=== PATIENT | female | born 1965 | race Caucasian/White ===

== ENCOUNTER 2017-07-02 13:48 | Emergency (ER) | payer BC ==
--- NOTE | 2017-07-02 14:28 | CR ---
Clinical history: 52-year-old female chest pain. Interpretation: Upright AP portable chest film negative. Reasonable inspiratory effort obese female with external front desk monitor leads. Normal cardiac silhouette without alveolar edema or dependent pleural effusion. No lung mass, hilar lymphadenopathy, focal lobar pneumonia or atelectasis/collapse. No pneumothorax.
--- NOTE | 2017-07-02 14:41 | EDM.PDOC ---
ED HPI GENERAL MEDICAL PROBLEM - General Chief Complaint: Chest Pain Stated Complaint: CHEST PAIN. IN BY DL AMB Time Seen by Provider: 07/02/17 14:30 Source of Information: Reports: Patient History Limitations: Reports: No Limitations - History of Present Illness INITIAL COMMENTS - FREE TEXT/NARRATIVE: This 52 yo female patient reports to the ED with increased chest pain over the past 24 hours. The patient reports she started to have pain in the left side of her chest yesterday which caused her not to sleep most of the night. The patient reports she took today off from work and she began to have pains in the right side of her chest. The patient reports her right sided chest pain goes straight through to her right shoulder blade. The patient reports when she got up there were numerous phone calls from people wondering how she is doing. The patient reports her mother about 1 year ago and she just put her aunt in the correction. The patient reports she forgot to take her antidepressants yesterday as well as today. The patient reports during the night she had the feeling that her heart was beating out of her chest. The patient reports she has been taking all of her other medications as prescribed. The patient reports she had a "touch of food poisoning" over the week end causing her loose bowel movement. These symptoms have now resolved. Duration: Day(s): (2), Constant Location: Reports: Chest (initially on the left side of her chest, but currently on the right side of her chest. ) Quality: Reports: Ache, Sharp Severity: Severe Improves with: Reports: None Worsens with: Reports: None Context: Reports: Other Associated Symptoms: Reports: Chest Pain, Shortness of Breath - Related Data Allergies Allergy/AdvReac Type Severity Reaction Status Date / Time codeine Allergy Itching Verified 07/12/14 16:18 rubber Allergy Airway Uncoded 07/12/14 16:18 Tightness Home Meds: Home Meds metFORMIN [Glucophage] 500 mg PO BID 07/12/14 [History] DULoxetine HCl [Duloxetine HCl] 1 cap PO DAILY 07/02/17 [History] Triamterene/Hydrochlorothiazid [Triamterene-HCTZ 37.5-25 MG] 1 tab PO DAILY [History] Social & Family History - Tobacco Use Smoking Status *Q: Light Tobacco Smoker - Alcohol Use Days Per Week of Alcohol Use: 0 - Recreational Drug Use Recreational Drug Use: No - Living Situation & Occupation Living situation: Reports: Occupation: Employed ED ROS GENERAL - Review of Systems Review Of Systems: ROS reveals no pertinent complaints other than HPI. ED EXAM, GENERAL - Physical Exam Exam: See Below Exam Limited By: No Limitations General Appearance: Alert, WD/WN, Moderate Distress Eye Exam: Bilateral Eye: EOMI, Normal Inspection, PERRL Ears: Normal External Exam, Normal Canal, Hearing Grossly Normal, Normal TMs Nose: Normal Inspection, Normal Mucosa, No Blood Throat/Mouth: Normal Inspection, Normal Lips, Normal Teeth, Normal Gums, Normal Oropharynx, Normal Voice, No Airway Compromise Head: Atraumatic, Normocephalic Neck: Normal Inspection, Supple, Non-Tender, Full Range of Motion Respiratory/Chest: No Respiratory Distress, Lungs Clear, Normal Breath Sounds, No Accessory Muscle Use, Chest Non-Tender Cardiovascular: Normal Peripheral Pulses, Regular Rate, Rhythm, No Edema, No Gallop, No JVD, No Murmur, No Rub GI/Abdominal: Normal Bowel Sounds, Soft, Non-Tender, No Organomegaly, No Distention, No Abnormal Bruit, No Mass, Other (obese) (Female) Exam: Deferred Rectal (Female) Exam: Deferred Back Exam: Normal Inspection, Full Range of Motion, NT Extremities: Normal Inspection, Normal Range of Motion, Non-Tender, Normal Capillary Refill, No Pedal Edema Neurological: Alert, Oriented, CN II-XII Intact, Normal Cognition, Normal Gait, Normal Reflexes, No Motor/Sensory Deficits Psychiatric: Normal Affect, Normal Mood Skin Exam: Warm, Dry, Intact, Normal Color, No Rash Lymphatic: No Adenopathy Course - Vital Signs Last Recorded V/S: Last Vital Signs Temp 36.5 C 07/02/17 13:48 Pulse 68 07/02/17 13:48 Resp 16 07/02/17 13:48 BP 110/45 L 07/02/17 13:48 Pulse Ox 96 07/02/17 13:48 - Orders/Labs/Meds Orders: Active Orders 24 hr Category Date Time Status EKG Documentation Completion [RC] URGENT Care 07/02/17 13:52 Active Labs: Laboratory Tests 07/02/17 07/02/17 07/02/17 Range/Units 14:07 14:07 14:07 WBC 7.3 (5.0-10.0) 10^3/uL RBC 4.49 (4.2-5.4) 10^6/uL Hgb 13.1 (12.0-16.0) g/dL Hct 39.3 (37.0-47.0) % MCV 87.5 (80-100) fL MCH 29.2 (27.0-34.0) pg MCHC 33.3 (33.0-35.0) g/dL Plt Count 185 (150-450) 10^3/uL Neut % (Auto) 60.6 (42.2-75.2) % Lymph % (Auto) 27.6 (20.5-50.1) % [place] % (Auto) 8.5 H (2-8) % Eos % (Auto) 2.6 (1.0-3.0) % Baso % (Auto) 0.7 (0.0-1.0) % Sodium 138 (135-145) mmol/L Potassium 3.7 (3.6-5.0) mmol/L Chloride 105 (101-111) mmol/L Carbon Dioxide 23.0 (21.0-31.0) mmol/L Anion Gap 13.7 BUN 10 (7-18) mg/dL Creatinine 0.7 (0.6-1.3) mg/dL Est Cr Clr Drug Dosing 92.68 mL/min Estimated GFR (MDRD) > 60 BUN/Creatinine Ratio 14.28 Glucose 126 H (74-105) mg/dL Calcium 8.7 (8.4-10.2) mg/dl Total Bilirubin 0.1 L (0.2-1.0) mg/dL AST 26 (10-42) IU/L ALT 29 (10-60) IU/L Alkaline Phosphatase 54 (42-121) IU/L Troponin I < 0.02 (0.00-0.02) ng/ml Total Protein 6.1 L (6.7-8.2) g/dl Albumin 3.3 (3.2-5.5) g/dl Globulin 2.8 Albumin/Globulin Ratio 1.18 Amylase 32 (28-100) U/L Lipase 29 (22-51) U/L Departure - Departure Time of Disposition: 15:41 Disposition: Home, Self-Care 01 Condition: Fair Clinical Impression: Anxiety, Panic attack Instructions: Panic Attacks, [id number] Forms: ED Department Discharge Care Plan Goals: The patient was advised of the examination, lab and x-ray results during the visit. The patient was encouraged to take her medications as directed. If the patient has any additional symptoms or concerns, the patient should follow-up with her primary care facility or return to the emergency department. - My Orders Last 24 Hours: My Active Orders 07/02/17 13:52 EKG Documentation Completion [RC] URGENT - Assessment/Plan Last 24 Hours: My Active Orders 07/02/17 13:52 EKG Documentation Completion [RC] URGENT
[2017-07-02 15:27] LABS: CHLORIDE,CL 105 mmol/L (101-111); SODIUM,NA 138 mmol/L (135-145)
--- NOTE | 2017-07-04 09:56 | EKG ---
07/02/2017- RICHAR NINA - EKG per my reading shows sinus rhythm at a rate of 70s. [facility] /[id number]
== END 2017-07-02 16:10 | disposition home or self-care (01) ==
LOC: DL.ED 13:48
DX: F41.0 Panic disorder [episodic paroxysmal anxiety] (principal); F17.200 Nicotine dependence, unspecified, uncomplicated; Z79.899 Other long term (current) drug therapy; Z88.5 Allergy status to narcotic agent; Z91.048 Other nonmedicinal substance allergy status
CPT/HCPCS: 36415; 71010; 80053; 82150; 83690; 84484; 85025; 93005; 99285

== ENCOUNTER 2018-05-16 09:22 | Emergency (ER) | payer BC ==
--- NOTE | 2018-05-16 09:30 | EDM.PDOC ---
ED HPI GENERAL MEDICAL PROBLEM - General Chief Complaint: Eye Problems Stated Complaint: [id number] SOMETHING WRONG W/ EYE Time Seen by Provider: 05/16/18 09:30 Source of Information: Reports: Patient, Old Records, RN, RN Notes Reviewed History Limitations: Reports: No Limitations - History of Present Illness INITIAL COMMENTS - FREE TEXT/NARRATIVE: Pt c/o that she woke with the Rt eye irritated, red, and with yellow matting. She also c/o a productive cough with yellow sputum x2 weeks. Denies fever, chills, SOB, or wheezing. Onset: Today Duration: Constant Location: Reports: Other (Rt eye) Quality: Reports: Other (Irritated) Severity: Moderate Improves with: Reports: None Worsens with: Reports: None Associated Symptoms: Reports: No Other Symptoms Eye Pain Score (Numeric/FACES): 9 - Related Data Allergies Allergy/AdvReac Type Severity Reaction Status Date / Time codeine Allergy Itching Verified 05/16/18 09:33 rubber Allergy Airway Uncoded 05/16/18 09:33 Tightness Home Meds: Home Meds metFORMIN [Glucophage] 500 mg PO BID 07/12/14 [History] DULoxetine HCl [Duloxetine HCl] 1 cap PO DAILY 07/02/17 [History] Triamterene/Hydrochlorothiazid [Triamterene-HCTZ 37.5-25 MG] 1 tab PO DAILY [History] Aspirin 975 mg PO ASDIRECTED PRN 05/16/18 [History] Past Medical History Cardiovascular History: Reports: Hypertension Psychiatric History: Reports: Anxiety, Depression, Panic Attack Endocrine/Metabolic History: Reports: Diabetes, Type II, Obesity/BMI 30+ Dermatologic History: Reports: Other (See Below) Other Dermatologic History: fatty cyst pelvic area, removed and multiple biopsies - Infectious Disease History Infectious Disease History: Reports: Measles, Mumps Social & Family History - Family History Family Medical History: Noncontributory - Tobacco Use Smoking Status *Q: Current Every Day Smoker Tobacco Use Within Last Twelve Months: Cigarettes - Caffeine Use Caffeine Use: Reports: Soda Other Caffeine Use: quit coffee 3 weeks ago - Living Situation & Occupation Living situation: Reports: Occupation: Employed ED ROS GENERAL - Review of Systems Review Of Systems: ROS reveals no pertinent complaints other than HPI. ED EXAM GENERAL W FULL EYE - Physical Exam Exam: See Below Exam Limited By: No Limitations General Appearance: Alert, WD/WN, No Apparent Distress, Obese Eye Exam: Right Eye: Conjunctival Injection, Left Eye: Normal Inspection, Bilateral Eye: EOMI, PERRL Eyelids: Bilateral: Normal Appearance Conjunctiva & Sclera: Right: Discharge, Injected Cornea Exam: Right: Normal Appearance Extraocular Movements: Bilateral: Intact Pupils: Normal Accommodation Pupillary Size: Bilateral: 3 mm Pupillary Reaction: Bilateral: Brisk Anterior Chamber: Right: Normal Appearance Ears: Normal External Exam, Hearing Grossly Normal Nose: Normal Inspection, Normal Mucosa, No Blood Throat/Mouth: Normal Inspection, Normal Voice, No Airway Compromise Head: Atraumatic, Normocephalic Neck: Normal Inspection Respiratory/Chest: No Respiratory Distress, No Accessory Muscle Use, Crackles, Other (deep cough). No: Rales, Rhonchi, Wheezing Cardiovascular: Regular Rate, Rhythm, No Edema Extremities: Normal Inspection Neurological: Alert, Oriented, No Motor/Sensory Deficits Psychiatric: Normal Mood Skin Exam: Warm, Dry, Intact, Normal Color, No Rash ED EYE w/ Add Procedure - Eye Procedure Alcaine Drops Administered: Yes Eye FB Removal: no Removal w/ Cotton Swab, no Removal w/ Needle, no Other Antibiotic Oinment/Drps Admin: Right Eye Progress: No FB present in Rt eye. No corneal abrasion. Course - Vital Signs Last Recorded V/S: Last Vital Signs Temp 36.6 C 05/16/18 09:27 Pulse 78 05/16/18 09:27 Resp 16 05/16/18 09:27 BP 131/64 05/16/18 09:27 Pulse Ox 96 05/16/18 09:27 - Orders/Labs/Meds Meds: Medications Discontinued Medications Generic Name Dose Route Start Last Admin Trade Name Javedq PRN Reason Stop Dose Admin Fluorescein Sodium 1 mg 05/16/18 09:43 05/16/18 09:49 Ful-Cher EYERT 05/16/18 09:44 1 mg ONETIME ONE Administration Gentamicin Sulfate 1 ml 05/16/18 09:43 05/16/18 09:49 Garamycin 0.3% Ophth Soln EYERT 05/16/18 09:44 1 ml ONETIME ONE Administration Tetracaine HCl 1 ml 05/16/18 09:42 05/16/18 09:49 Tetracaine 0.5% Steri-Unit Brigida EYERT 05/16/18 09:43 1 ml ONETIME ONE Administration Departure - Departure Time of Disposition: 10:00 Disposition: Home, Self-Care 01 Condition: Good Clinical Impression: Conjunctivitis Qualifiers: Conjunctivitis type: acute Acute conjunctivitis type: bacterial Laterality: right Qualified Code(s): H10.31 - Unspecified acute conjunctivitis, right eye Acute bronchitis Qualifiers: Bronchitis organism: other organism Qualified Code(s): J20.8 - Acute bronchitis due to other specified organisms - Discharge Information *PRESCRIPTION DRUG MONITORING PROGRAM REVIEWED*: No *COPY OF PRESCRIPTION DRUG MONITORING REPORT IN PATIENT KSENIA: No Instructions: Bacterial Conjunctivitis, [id number], Acute Bronchitis, Adult, [id number] Forms: ED Department Discharge Additional Instructions: Gentamicin Ophthalmic Solution 0.3%: one drop in affected eye(s) four times a day for 5 days. Rx: Z-Gerardo 250mg Follow up in clinic if not improving in 2 to 3 days.
[2018-05-16] MEDS ORDERED: Tetracaine HCl/PF 0.5% 4 ML Bottle EYERT ONE (09:42)
[2018-05-16] MEDS ORDERED: Gentamicin 0.3% Ophth Soln 5 ML Bottle EYERT ONE (09:43)
[2018-05-16] MEDS ORDERED: Fluorescein 1 MG Ophth Strip EYERT ONE (09:43)
== END 2018-05-16 10:10 | disposition home or self-care (01) ==
LOC: DL.ED 09:22
DX: H10.31 Unspecified acute conjunctivitis, right eye (principal); J20.8 Acute bronchitis due to other specified organisms; F17.210 Nicotine dependence, cigarettes, uncomplicated; E11.9 Type 2 diabetes mellitus without complications; I10 Essential (primary) hypertension; Z79.899 Other long term (current) drug therapy; Z88.5 Allergy status to narcotic agent; Z91.09 Other allergy status, other than to drugs and biological substances; Z79.84 Long term (current) use of oral hypoglycemic drugs
CPT/HCPCS: 99283; A9270

== ENCOUNTER 2019-05-02 11:33 | Emergency (ER) | payer OTHER, BC ==
--- NOTE | 2019-05-02 12:35 | CT ---
EXAMINATION: Cervical Spine wo Cont SEX: Female AGE: 54 years CLINICAL HISTORY: 4-year-old female who hit head on ice cooler at work. Head pain, TECHNIQUE: Volume acquisition of data emergency unenhanced CT scan of the cervical spine obtained with patient lying supine on the Siemens multi slice scanner [facility]. All data archived in the PACS system for storage, reformatting axial/sagittal/coronal planes and study (bone/soft tissue windows). Interpretation: 1. Reversal of usual cervical lordosis this patient with signs of CHRONIC severe lower cervical disc disease i.e. interspace narrowing, endplate sclerosis and hypertrophic marginal/uncinate spur formation C6-7 level. 2. Mild reactive atlantoaxial sclerosis. 3. No sign of basal skull fracture and symmetric clear pneumatization of the mastoid sinuses. 4. No prevertebral soft tissue swelling, cervical fracture, spondylolisthesis or jump locked facets. 5. No other intervertebral disc space narrowing or arthritic degenerative change. CONCLUSION: Chronic lower cervical disc disease and arthritis. No acute fracture or dislocation cervical spine.
--- NOTE | 2019-05-02 12:43 | CT ---
EXAMINATION: Head wo Cont SEX: Female AGE: 54 years CLINICAL HISTORY: 54-year-old female who hit head on ice cooler at work. Head pain. Patient emergency department. Scan technique: Volume acquisition of data emergency unenhanced CT scan of the head and brain obtained with patient lying supine on the Siemens multislice scanner [facility]. All data archived in the PACS system for storage, reformatting axial/sagittal/coronal planes and study (bone/brain windows). INTERPRETATION: 1. Extracranial Focal soft tissue swelling over the posterior convexity on the right. Hematoma? Laceration? 2. Uniformly thick bony calvarium without sign of skull fracture or underlying brain contusion. (Prominent vascular sinuses) 3. No abnormal extracerebral/and cranial epidural or subdural hematoma. 4. No supratentorial or posterior fossa mass lesion. Symmetric normal sauceda-white matter pattern and underlying mirror-image normal ventricular system. No hydrocephalus. 5. Physiologic midline pineal and symmetric choroid plexus calcifications. 6. No sign of acute intracerebral/intraventricular/subarachnoid bleed. 7. Symmetric clear pneumatization of the paranasal and mastoid sinuses. Cerebellum and brainstem unremarkable. CONCLUSION: Small extracranial soft tissue hematoma, posterior convexity on the right. No sign of skull fracture or closed head injury. No intracranial mass, hydrocephalus or bleed.
--- NOTE | 2019-05-02 13:45 | EDM.PDOC ---
ED HPI GENERAL MEDICAL PROBLEM - General Chief Complaint: Head Injury Stated Complaint: HIT HEAD @ WORK Time Seen by Provider: 05/02/19 11:40 Source of Information: Reports: Patient History Limitations: Reports: No Limitations - History of Present Illness INITIAL COMMENTS - FREE TEXT/NARRATIVE: c/ lump to back of head, feeling tingling on left side of face, Hit head on shelf in large cooler at work , no loss of consciousness. Noted stocking shelves and backing out and thought was clear of shelf. Upper lateral pain to scalp and lateral neck. No nausea or vomiting. No weakness. No prior hx of head injuries. Mild jaw discomfort, greater than usual. TMJ type symptoms. Normal for jaw to pop with opening and closing. Head Pain Score (Numeric/FACES): 8 - Related Data Allergies Allergy/AdvReac Type Severity Reaction Status Date / Time codeine Allergy Itching Verified 05/02/19 11:45 rubber Allergy Airway Uncoded 05/02/19 11:45 Tightness Home Meds: Home Meds metFORMIN [Glucophage] 500 mg PO BID 07/12/14 [History] Triamterene/Hydrochlorothiazid [Triamterene-HCTZ 37.5-25 MG] 1 tab PO DAILY [History] Aspirin 975 mg PO ASDIRECTED PRN 05/16/18 [History] Triamcinolone Acetonide [Triamcinolone Acetonide 0.1% Oint] 1 squirt TOP DAILY PRN 04/01/19 [History] Omeprazole 20 mg PO DAILY 05/02/19 [History] Past Medical History HEENT History: Reports: Impaired Vision Other HEENT History: glasses for reading Cardiovascular History: Reports: Hypertension Respiratory History: Reports: None Gastrointestinal History: Reports: GERD Genitourinary History: Reports: None [employer] WORK[employer] History: Reports: None Musculoskeletal History: Reports: Arthritis, Neck Pain, Chronic Neurological History: Reports: None Psychiatric History: Reports: Anxiety, Depression, Panic Attack Endocrine/Metabolic History: Reports: Diabetes, Type II, Obesity/BMI 30+ Hematologic History: Reports: None Immunologic History: Reports: None Oncologic (Cancer) History: Reports: None Dermatologic History: Reports: Venous Stasis Dermatitis, Other (See Below) Other Dermatologic History: fatty cyst pelvic area, removed and multiple biopsies - Infectious Disease History Infectious Disease History: Reports: Mumps - Past Surgical History Head Surgeries/Procedures: Reports: None HEENT Surgical History: Reports: Adenoidectomy, Tonsillectomy Cardiovascular Surgical History: Reports: None GI Surgical History: Reports: Colonoscopy Female Surgical History: Reports: None Musculoskeletal Surgical History: Reports: None Social & Family History - Family History Family Medical History: Noncontributory - Tobacco Use Smoking Status *Q: Current Every Day Smoker Years of Tobacco use: 15 Packs/Tins Daily: 0.5 - Caffeine Use Caffeine Use: Reports: Coffee Other Caffeine Use: quit coffee 3 weeks ago Caffeine Use Comment: 8 OZ DAILY - Living Situation & Occupation Living situation: Reports: Occupation: Employed ED ROS GENERAL - Review of Systems Review Of Systems: ROS reveals no pertinent complaints other than HPI. ED EXAM, HEAD INJURY - Physical Exam Exam: See Below Exam Limited By: No Limitations General Appearance: Alert, Anxious, Mild Distress Head: Scalp Hematoma (upper mid occipital), Facial Tenderness (left cheek). No : Atraumatic, Scalp Lacerations, Active Bleeding, Chandler's Sign, Facial Abrasions, Facial Ecchymosis, Facial Lacerations, Facial Swelling, Raccoon Eyes Nexus Criteria: No: Posterior, Midline Cervical Tenderness, Evidence of Intoxication, Altered Level of Consciousness, Focal Neurological Deficit, Painful Distraction Injuries Eyes: Bilateral Eye: EOMI, Normal Fundi, PERRL Ears: Normal External Exam, Normal Canal, Hearing Grossly Normal, Normal TMs. No: Canal Discharge Nose: Normal Inspection, Normal Mucousa Throat/Mouth: Normal Inspection Neck: Normal Alignment, Paraspinous Muscle Tender, Tender Lateral. No: Spinous Processes Tender Respiratory: No Respiratory Distress, Lungs Clear, Normal Breath Sounds Cardiovascular: Normal Peripheral Pulses, Regular Rate, Rhythm GI/Abdominal Exam: Soft Back Exam: Normal Inspection, Full Range of Motion. No: Paraspinal Tenderness, Vertebral Tenderness Extremities: Normal Inspection, Normal Range of Motion Neurologic: No Motor/Sensory Deficits, Alert, Oriented x 3 Skin: Normal Color, Warm/Dry - Lowman Coma Score Best Eye Response (Lowman): (4) Open Spontaneously Best Verbal Response (Lowman): (5) Oriented Best Motor Response (Lowman): (6) Obeys Commands Manuela Total: 15 Course - Vital Signs Last Recorded V/S: Last Vital Signs Temp 96 F 05/02/19 11:36 Pulse 75 05/02/19 11:36 Resp 20 05/02/19 11:36 BP 131/68 05/02/19 11:36 Pulse Ox 96 05/02/19 11:36 - Radiology Interpretation Free Text/Narrative:: Head and Neck CT performed, Neck negative. Head with scalp hematoma. Departure - Departure Time of Disposition: 13:40 Disposition: Home, Self-Care 01 Condition: Good Clinical Impression: Concussion injury of brain, Neck pain Contusion of face Qualifiers: Encounter type: initial encounter Qualified Code(s): S00.83XA - Contusion of other part of head, initial encounter - Discharge Information *PRESCRIPTION DRUG MONITORING PROGRAM REVIEWED*: No *COPY OF PRESCRIPTION DRUG MONITORING REPORT IN PATIENT KSENIA: No Instructions: Concussion, Adult, [id number] Referrals: James Cueto NP [Primary Care Provider] - Forms: ED Department Discharge Additional Instructions: rest advance activity slowly light diet ice to head recheck on Sunday tylenol or ibuprofen every 4 hours as needed for discomfort
== END 2019-05-02 14:09 | disposition home or self-care (01) ==
LOC: DL.ED 11:33
DX: S06.0X0A Concussion without loss of consciousness, initial encounter (principal); S00.83XA Contusion of other part of head, initial encounter; S00.03XA Contusion of scalp, initial encounter; M54.2 Cervicalgia; I10 Essential (primary) hypertension; E11.9 Type 2 diabetes mellitus without complications; K21.9 Gastro-esophageal reflux disease without esophagitis; M19.90 Unspecified osteoarthritis, unspecified site; E66.9 Obesity, unspecified; Z68.41 Body mass index [BMI] 40.0-44.9, adult; F17.210 Nicotine dependence, cigarettes, uncomplicated; Z88.5 Allergy status to narcotic agent; Z91.040 Latex allergy status; Z79.84 Long term (current) use of oral hypoglycemic drugs; Z79.82 Long term (current) use of aspirin; Z79.899 Other long term (current) drug therapy; W22.8XXA Striking against or struck by other objects, initial encounter; Y99.0 Civilian activity done for income or pay
CPT/HCPCS: 70450; 72125; 99283-25

== ENCOUNTER 2021-01-15 19:07 | Emergency (ER) | payer BC, OTHER ==
[2021-01-15] MEDS: Ondansetron 4 MG/2 ML SDV IVPUSH ONE (19:56)
[2021-01-15] MEDS: Sodium Chloride 0.9% 1,000 ML IV ONE (19:58)
[2021-01-15 20:22] LABS: ANION GAP 14.2 mEq/L (7-13); CHLORIDE,CL 99 mmol/L (98-107); SODIUM,NA 136 mmol/L (136-145)
--- NOTE | 2021-01-15 21:14 | EDM.PDOC ---
ED HPI GENERAL MEDICAL PROBLEM - General Chief Complaint: Exposure to Heat or Cold Stated Complaint: AMBULANCE Time Seen by Provider: 01/15/21 19:45 Source of Information: Reports: Patient, RN, RN Notes Reviewed History Limitations: Reports: No Limitations - History of Present Illness INITIAL COMMENTS - FREE TEXT/NARRATIVE: Alan is a 55 y/o female who presents to the ED via [facility] with complaints of pre-syncope. The patient reports her symptoms began approximately one hour prior to arrival to this facility as she was working at the local [place]. The patient reports she has been in the sun for the past three hours; she has not eaten since breakfast and has been drinking coffee, energy drinks, and ice water. Upon EMS arrival the patient was alert and oriented with a GCS of 15; she was given ice packs and water to drink. Upon arrival to this facility the patient remains alert and oriented x3 with a GCS of 15. She denies loss of consciousness and did not fall. She denies recent illness, shaking chills, vision changes, chest pain, palpitations, shortness of breath, dyspepsia, abdominal pain, nausea, vomiting, dysuria or diarrhea. She does a ttest to constipation with her last bowel movement three days ago. The patient attests to smoking 1/2 pack of cigarettes per day; she denies alcohol or recreational drug use. She reports she feels "...much better" since the ambulance picked her up. Treatments RECORD CLERK: Reports: Cold Therapy Head Pain Score (Numeric/FACES): 4 - Related Data Allergies Allergy/AdvReac Type Severity Reaction Status Date / Time codeine Allergy Itching Verified 01/15/21 19:27 rubber Allergy Airway Uncoded 01/15/21 19:27 Tightness Home Meds: Home Meds metFORMIN [Glucophage] 500 mg PO BID 07/12/14 [History] Triamterene/Hydrochlorothiazid [Triamterene-HCTZ 37.5-25 MG] 1 tab PO DAILY 07/02/17 [History] Aspirin 975 mg PO ASDIRECTED PRN 05/16/18 [History] Triamcinolone Acetonide [Triamcinolone Acetonide 0.1% Oint] 1 squirt TOP DAILY PRN 04/01/19 [History] Omeprazole 20 mg PO DAILY 05/02/19 [History] Past Medical History HEENT History: Reports: Impaired Vision Other HEENT History: glasses for reading Cardiovascular History: Reports: Hypertension Respiratory History: Reports: None Gastrointestinal History: Reports: GERD Genitourinary History: Reports: None APPLICATION OPERATIONS ENGINEER History: Reports: None Musculoskeletal History: Reports: Arthritis, Neck Pain, Chronic Neurological History: Reports: None Psychiatric History: Reports: Anxiety, Depression, Panic Attack Endocrine/Metabolic History: Reports: Diabetes, Type II, Obesity/BMI 30+ Hematologic History: Reports: None Immunologic History: Reports: None Oncologic (Cancer) History: Reports: None Dermatologic History: Reports: Venous Stasis Dermatitis, Other (See Below) Other Dermatologic History: fatty cyst pelvic area, removed and multiple biopsies - Infectious Disease History Infectious Disease History: Reports: Mumps - Past Surgical History Head Surgeries/Procedures: Reports: None HEENT Surgical History: Reports: Adenoidectomy, Tonsillectomy Cardiovascular Surgical History: Reports: None GI Surgical History: Reports: Colonoscopy Female Surgical History: Reports: None Musculoskeletal Surgical History: Reports: None Social & Family History - Family History Family Medical History: No Pertinent Family History - Tobacco Use Tobacco Use Status *Q: Current Every Day Tobacco User Years of Tobacco use: 7 Packs/Tins Daily: 0.5 - Caffeine Use Caffeine Use: Reports: Coffee, Energy Drinks Other Caffeine Use: quit coffee 3 weeks ago Caffeine Use Comment: 8 OZ DAILY - Recreational Drug Use Recreational Drug Use: No - Living Situation & Occupation Living situation: Reports: Occupation: Employed ED ROS GENERAL - Review of Systems Review Of Systems: Comprehensive ROS is negative, except as noted in HPI. ED EXAM, GENERAL - Physical Exam Exam: See Below Exam Limited By: No Limitations General Appearance: Alert, No Apparent Distress, Obese Eye Exam: Bilateral Eye: Conjunctival Injection, EOMI, Normal Inspection, PERRL (3mm) Ears: Normal External Exam, Normal Canal, Hearing Grossly Normal, Normal TMs Ear Exam: Bilateral Ear: Auricle Normal, Canal Normal, TM normal Nose: Normal Inspection, Normal Mucosa, No Blood Throat/Mouth: Normal Inspection, Normal Voice, No Airway Compromise. No: Normal Lips (Dry, cracked), Normal Oropharynx (Dry mucous membranes) Head: Atraumatic, Normocephalic Neck: Normal Inspection, Supple, Non-Tender, Full Range of Motion. No: Lymphadenopathy (L), Lymphadenopathy (R) Respiratory/Chest: No Respiratory Distress, Lungs Clear, Normal Breath Sounds, No Accessory Muscle Use, Chest Non-Tender Cardiovascular: Normal Peripheral Pulses, Regular Rate, Rhythm, No Edema, No Gallop, No JVD, No Murmur, No Rub Peripheral Pulses: 2+: Radial (L), Radial (R) GI/Abdominal: Normal Bowel Sounds, Soft, Non-Tender, No Organomegaly, No Distention, No Abnormal Bruit, No Mass. No: Guarding, Rigid, Rebound (Female) Exam: Deferred Rectal (Female) Exam: Deferred Back Exam: Normal Inspection, Full Range of Motion, NT Extremities: Normal Inspection, Normal Range of Motion, Non-Tender, Normal Capillary Refill, No Pedal Edema Neurological: Alert, Oriented, CN II-XII Intact, Normal Cognition, Normal Gait, No Motor/Sensory Deficits Psychiatric: Normal Affect, Normal Mood Skin Exam: Warm, Dry, Intact, Normal Color, No Rash. No: Cyanosis, Erythema, Jaundice, Mottled, Pallor Lymphatic: No Adenopathy Course - Vital Signs Last Recorded V/S: Last Vital Signs Temp 98.1 F 01/15/21 19:20 Pulse 77 01/15/21 19:20 Resp 18 01/15/21 19:20 BP 133/54 L 01/15/21 19:20 Pulse Ox 98 01/15/21 19:20 - Orders/Labs/Meds Labs: Laboratory Tests 01/15/21 01/15/21 01/15/21 Range/Units 19:46 19:53 19:53 WBC 10.1 H (5.0-10.0) 10^3/uL RBC 4.79 (4.2-5.4) 10^6/uL Hgb 12.8 D (12.0-16.0) g/dL Hct 39.2 (37.0-47.0) % MCV 81.8 (80-100) fL MCH 26.7 L (27.0-34.0) pg MCHC 32.7 L (33.0-35.0) g/dL Plt Count 275 (150-450) 10^3/uL Neut % (Auto) 72.1 (42.2-75.2) % Lymph % (Auto) 20.0 L (20.5-50.1) % Gladwin % (Auto) 5.8 (2-8) % Eos % (Auto) 1.5 (1.0-3.0) % Baso % (Auto) 0.6 (0.0-1.0) % Sodium 136 (136-145) mmol/L Potassium 3.2 L (3.5-5.1) mmol/L Chloride 99 (98-107) mmol/L Carbon Dioxide 26 (21-32) mmol/L Anion Gap 14.2 H (7-13) mEq/L BUN 14 (7-18) mg/dL Creatinine 1.17 H (0.55-1.02) mg/dL Est Cr Clr Drug Dosing 53.52 mL/min Estimated GFR (MDRD) 48 BUN/Creatinine Ratio 12.0 (No establ ref range) Glucose 159 H (70-99) mg/dL POC Glucose 158 H (70-99) mg/dL Calcium 8.8 (8.5-10.1) mg/dL Total Bilirubin 0.6 (0.2-1.0) mg/dL AST 19 (15-37) U/L ALT 33 (14-59) U/L Alkaline Phosphatase 70 (46-116) U/L Total Protein 7.5 (6.4-8.2) g/dL Albumin 3.7 (3.4-5.0) g/dL Globulin 3.8 Albumin/Globulin Ratio 1.0 Urine Color (YELLOW) Urine Appearance (CLEAR) Urine pH (5.0-9.0) Ur Specific Calhoun (1.005-1.030) Urine Protein (NEGATIVE) Urine Glucose (UA) (NEGATIVE) Urine Ketones (NEGATIVE) Urine Occult Blood (NEGATIVE) Urine Nitrite (NEGATIVE) Urine Bilirubin (NEGATIVE) Urine Urobilinogen (0.2-1.0) mg/dL Ur Leukocyte Esterase (NEGATIVE) Urine Opiates Screen (NEGATIVE) Ur Oxycodone Screen (NEGATIVE) Urine Methadone Screen (NEGATIVE) Ur Barbiturates Screen (NEGATIVE) U Tricyclic Antidepress (NEGATIVE) Ur Phencyclidine Scrn (NEGATIVE) Ur Amphetamine Screen (NEGATIVE) U Methamphetamines Scrn (NEGATIVE) Urine MDMA Screen (NEGATIVE) U Benzodiazepines Scrn (NEGATIVE) Urine Cocaine Screen (NEGATIVE) U Marijuana (THC) Screen (NEGATIVE) Ethyl Alcohol < 3 (0) mg/dL 01/15/21 01/15/21 Range/Units 20:55 20:55 WBC (5.0-10.0) 10^3/uL RBC (4.2-5.4) 10^6/uL Hgb (12.0-16.0) g/dL Hct (37.0-47.0) % MCV (80-100) fL MCH (27.0-34.0) pg MCHC (33.0-35.0) g/dL Plt Count (150-450) 10^3/uL Neut % (Auto) (42.2-75.2) % Lymph % (Auto) (20.5-50.1) % Gladwin % (Auto) (2-8) % Eos % (Auto) (1.0-3.0) % Baso % (Auto) (0.0-1.0) % Sodium (136-145) mmol/L Potassium (3.5-5.1) mmol/L Chloride (98-107) mmol/L Carbon Dioxide (21-32) mmol/L Anion Gap (7-13) mEq/L BUN (7-18) mg/dL Creatinine (0.55-1.02) mg/dL Est Cr Clr Drug Dosing mL/min Estimated GFR (MDRD) BUN/Creatinine Ratio (No establ ref range) Glucose (70-99) mg/dL POC Glucose (70-99) mg/dL Calcium (8.5-10.1) mg/dL Total Bilirubin (0.2-1.0) mg/dL AST (15-37) U/L ALT (14-59) U/L Alkaline Phosphatase (46-116) U/L Total Protein (6.4-8.2) g/dL Albumin (3.4-5.0) g/dL Globulin Albumin/Globulin Ratio Urine Color Yellow (YELLOW) Urine Appearance Clear (CLEAR) Urine pH 6.5 (5.0-9.0) Ur Specific Calhoun 1.010 (1.005-1.030) Urine Protein Negative (NEGATIVE) Urine Glucose (UA) Negative (NEGATIVE) Urine Ketones Negative (NEGATIVE) Urine Occult Blood Negative (NEGATIVE) Urine Nitrite Negative (NEGATIVE) Urine Bilirubin Negative (NEGATIVE) Urine Urobilinogen 0.2 (0.2-1.0) mg/dL Ur Leukocyte Esterase Negative (NEGATIVE) Urine Opiates Screen Negative (NEGATIVE) Ur Oxycodone Screen Negative (NEGATIVE) Urine Methadone Screen Negative (NEGATIVE) Ur Barbiturates Screen Negative (NEGATIVE) U Tricyclic Antidepress Negative (NEGATIVE) Ur Phencyclidine Scrn Negative (NEGATIVE) Ur Amphetamine Screen Negative (NEGATIVE) U Methamphetamines Scrn Negative (NEGATIVE) Urine MDMA Screen Negative (NEGATIVE) U Benzodiazepines Scrn Negative (NEGATIVE) Urine Cocaine Screen Negative (NEGATIVE) U Marijuana (THC) Screen Negative (NEGATIVE) Ethyl Alcohol (0) mg/dL Meds: Medications Discontinued Medications Generic Name Dose Route Start Last Admin Trade Name Jah PRN Reason Stop Dose Admin Sodium Chloride 1,000 mls @ 999 mls/hr 01/15/21 19:41 01/15/21 19:58 Normal Saline IV 01/15/21 20:41 999 mls/hr .BOLUS ONE Administration Ondansetron HCl 4 mg 01/15/21 19:41 01/15/21 19:56 Ondansetron 4 Mg/2 Ml Sdv IVPUSH 01/15/21 19:42 4 mg ONETIME ONE Administration Polyethylene Glycol 17 gm 01/15/21 21:11 01/15/21 21:36 Polyethylene Glycol 3350 Powder 17 Gm Packet PO 01/15/21 21:12 17 gm ONETIME ONE Administration - Re-Assessments/Exams Free Text/Narrative Re-Assessment/Exam: 01/15/21 NS 1L bolus and Zofran IV administered while labs pending. Patient verbalized further improvement in symptoms following medication and IVF administration. Findings of examination and lab work reviewed with patient. Will treat constipation with MiraLAX. Discussed supportive cares as well as red flag signs and symptoms which would warrant reevaluation. Patient verbalized understanding and agreement with the plan of care. Departure - Departure Time of Disposition: 21:10 Disposition: Home, Self-Care 01 Condition: Good Clinical Impression: Dehydration Constipation Qualifiers: Constipation type: unspecified constipation type Qualified Code(s): K59.00 - Constipation, unspecified - Discharge Information *PRESCRIPTION DRUG MONITORING PROGRAM REVIEWED*: Not Applicable *COPY OF PRESCRIPTION DRUG MONITORING REPORT IN PATIENT KSENIA: Not Applicable Instructions: Constipation, Adult, [id number], Dehydration, Adult, [id number] Forms: ED Department Discharge Additional Instructions: Rx: MiraLAX 1.) Drink large volumes of water while taking stool softeners and laxatives. 2.) Avoid excessive time in the heat. 3.) Follow up with primary care provider, or return to the emergency department, with any return of symptoms. Sepsis Event Note (ED) - Evaluation Sepsis Screening Result: No Definite Risk
[2021-01-15] MEDS: Polyethylene Glycol 3350 Powder 17 GM Packet PO ONE (21:36)
== END 2021-01-15 21:44 | disposition home or self-care (01) ==
LOC: DL.ED 19:07
DX: K59.00 Constipation, unspecified (principal); E86.0 Dehydration; I10 Essential (primary) hypertension; E11.9 Type 2 diabetes mellitus without complications; K21.9 Gastro-esophageal reflux disease without esophagitis; E66.9 Obesity, unspecified; Z91.09 Other allergy status, other than to drugs and biological substances; Z79.82 Long term (current) use of aspirin; Z72.0 Tobacco use; Z88.5 Allergy status to narcotic agent; Z79.84 Long term (current) use of oral hypoglycemic drugs; Z68.25 Body mass index [BMI] 25.0-25.9, adult; Z79.899 Other long term (current) drug therapy
CPT/HCPCS: 36415; 80053; 80305; 80307; 81003; 82947; 85025; 96374; 99284; A9270; J2405; J7030; 99283

== ENCOUNTER 2021-08-26 06:21 | Emergency (ER) | payer BC ==
[2021-08-26] MEDS ORDERED: Ketorolac 30 MG/ML SDV IM ONE (07:25)
[2021-08-26 08:11] LABS: CORONAVIRUS COVID-19 NAA NEGATIVE (NEGATIVE)
== END 2021-08-26 08:28 | disposition home or self-care (01) ==
LOC: DL.ED 06:21
DX: S16.1XXA Strain of muscle, fascia and tendon at neck level, initial encounter (principal); S96.911A Strain of unspecified muscle and tendon at ankle and foot level, right foot, initial encounter; S86.911A Strain of unspecified muscle(s) and tendon(s) at lower leg level, right leg, initial encounter; S00.03XA Contusion of scalp, initial encounter; I10 Essential (primary) hypertension; K21.9 Gastro-esophageal reflux disease without esophagitis; M19.90 Unspecified osteoarthritis, unspecified site; E11.9 Type 2 diabetes mellitus without complications; E66.9 Obesity, unspecified; Z72.0 Tobacco use; Z91.040 Latex allergy status; Z88.5 Allergy status to narcotic agent; Z91.048 Other nonmedicinal substance allergy status; Z79.82 Long term (current) use of aspirin; Z79.899 Other long term (current) drug therapy; Z79.84 Long term (current) use of oral hypoglycemic drugs; Z20.822 Contact with and (suspected) exposure to COVID-19; W01.198A Fall on same level from slipping, tripping and stumbling with subsequent striking against other object, initial encounter; Y93.01 Activity, walking, marching and hiking; Y92.89 Other specified places as the place of occurrence of the external cause; Y99.0 Civilian activity done for income or pay
CPT/HCPCS: 0240U; 70450; 72125; 73552; 73560; 73590; 96372; 99284; J1885

== ENCOUNTER 2022-03-07 18:09 | Emergency (ER) | payer BC, OTHER ==
[2022-03-07 19:11] LABS: RESPIRATORY SYNCYTIAL VIR NAA NEGATIVE (NEGATIVE)
[2022-03-07 19:30] LABS: CORONAVIRUS COVID-19 NAA POSITIVE (NEGATIVE)
[2022-03-07] MEDS ORDERED: Acetaminophen 325 MG Tab PO ONE (21:25)
[2022-03-07] MEDS ORDERED: Benzonatate 100 MG Cap PO ONE (21:25)
[2022-03-07 21:40] LABS: ANION GAP 15.6 mEq/L (7-13); CHLORIDE,CL 99 mmol/L (98-107); SODIUM,NA 135 mmol/L (136-145)
[2022-03-07 21:42] LABS: ESTIMATED GFR 65 mL/min (>=60)
[2022-03-07] MEDS ORDERED: Iopamidol 755 Mg/ML 100 ML Bottle IVPUSH ONE (22:01)
== END 2022-03-07 23:18 | disposition home or self-care (01) ==
LOC: DL.ED 18:09
DX: U07.1 COVID-19 (principal); E11.9 Type 2 diabetes mellitus without complications; F17.210 Nicotine dependence, cigarettes, uncomplicated; E66.9 Obesity, unspecified; Z68.30 Body mass index [BMI] 30.0-30.9, adult; Z88.5 Allergy status to narcotic agent; Z91.040 Latex allergy status; Z91.048 Other nonmedicinal substance allergy status; Z79.899 Other long term (current) drug therapy; Z79.84 Long term (current) use of oral hypoglycemic drugs; Z79.82 Long term (current) use of aspirin; Z86.16 Personal history of COVID-19
CPT/HCPCS: 0241U; 36415; 71045; 71260; 80053; 80307; 82150; 83605; 83690; 84484; 85025; 85379; 86140; 87040; 87081; 87430; 99284; 99285; A9270-GY; Q9967

== ENCOUNTER 2023-12-01 07:36 | Emergency (ER) | payer BC ==
[2023-12-01] MEDS: Naproxen 250 MG Tab PO ONE (09:27)
[2023-12-01] MEDS ORDERED: Benzocaine 20% Topical Spray UD MUCMEM ONE (09:53)
== END 2023-12-01 10:00 | disposition home or self-care (01) ==
LOC: DL.ED 07:36
DX: M77.9 Enthesopathy, unspecified (principal); E11.9 Type 2 diabetes mellitus without complications; E66.9 Obesity, unspecified; M19.90 Unspecified osteoarthritis, unspecified site; K21.9 Gastro-esophageal reflux disease without esophagitis; I10 Essential (primary) hypertension; Z79.82 Long term (current) use of aspirin; Z79.84 Long term (current) use of oral hypoglycemic drugs; Z79.899 Other long term (current) drug therapy; Z88.5 Allergy status to narcotic agent; Z91.040 Latex allergy status; Z91.048 Other nonmedicinal substance allergy status
CPT/HCPCS: 73110; 99283; A9270